=== PATIENT | male | born 2005 | race Two or more races ===

== ENCOUNTER 2025-05-08 13:46 | Emergency (ER) | payer OTHER ==
[~2025-05-08] VITALS: Ht 175.3 cm; Wt 86.2 kg
[2025-05-08] MEDS ORDERED: SYNTHROID50 MCG PO (13:57)
[2025-05-08] MEDS ORDERED: PEPCID AC20 MG PO (17:35)
[2025-05-08] MEDS ORDERED: DICLOFENAC SODI50 MG PO (17:35)
== END 2025-05-08 17:55 ==
LOC: ER 13:46
DX: M25.532 Pain in left wrist (principal); E03.8 Other specified hypothyroidism